=== PATIENT | male | born 1985 | race Two or more races ===

== ENCOUNTER 2023-03-31 03:26 | Observation (INO) | payer OTHER ==
[2023-03-31] MEDS ORDERED: SODIUM CHLORIDE 0.9% 500 ML INFUS.BAG IV ONE (03:49)
[2023-03-31] MEDS ORDERED: ONDANSETRON 4 MG/2 ML VIAL IVPUSH ONE ×2 (03:49→08:17)
[2023-03-31] MEDS ORDERED: ACETAMINOPHEN 1000 MG/100 ML BAG IVPB ONE (03:49)
[2023-03-31] MEDS ORDERED: ACETAMINOPHEN INJECTION 100 ML IVPB ONE (04:51)
[2023-03-31] MEDS ORDERED: ONDANSETRON 4 MG/2 ML VIAL ONE ×2 (04:51→08:19)
[2023-03-31 05:01] LABS: URINE APPEARANCE CLEAR; URINE BILIRUBIN NEGATIVE (NEGATIVE); URINE COLOR YELLOW; URINE GLUCOSE (UA) NEGATIVE (NEGATIVE); URINE KETONE NEGATIVE (NEGATIVE); URINE LEUK ESTERASE NEGATIVE (NEGATIVE); URINE NITRITE NEGATIVE (NEGATIVE); URINE PROTEIN NEGATIVE (NEGATIVE); URINE UROBILINOGEN 0.2 mg/dL (0.2-1.0)
[2023-03-31 05:02] LABS: BASO % 0.6 % (0-2.0); EOS % 1.4 % (0-4.5); HEMATOCRIT 46.1 % (35.4-49); HEMOGLOBIN 15.5 GM/dL (11.7-16.9); LYMPH % 37.9 % (8-40); MCHC 33.6 g/dl (32.0-35.9); MEAN CELL VOLUME 86.2 fl (80-96); MEAN PLT VOLUME 9.1 fl (7.5-11.1); MONO % 6.7 % (3.8-10.2); NEUT % 53.4 % (42.8-82.8); PLATELET COUNT 209 10^3/uL (134-434); RBC 5.35 M/mm3 (4.00-5.60); RDW 13.5 % (11.9-15.9); WHITE BLOOD COUNT 4.7 K/mm3 (4.0-10.0)
[2023-03-31 05:18] LABS: POTASSIUM 4.4 mmol/L (3.5-5.1)
[2023-03-31 05:21] LABS: ALBUMIN 3.9 g/dl (3.4-5.0); BLOOD UREA NITROGEN 8.5 mg/dL (7-18); CALCIUM 9.2 mg/dL (8.5-10.1)
[2023-03-31 05:24] LABS: CREATININE 0.8 mg/dL (0.55-1.3)
[2023-03-31 05:25] LABS: BILIRUBIN,TOTAL 0.6 mg/dL (0.2-1)
[2023-03-31 05:26] LABS: TOT PROT 7.6 g/dl (6.4-8.2)
[2023-03-31] MEDS ORDERED: LACTATED RINGERS SOLUTION 1000 ML INFUS.BAG IV ONE (08:02)
[2023-03-31] MEDS ORDERED: morphine CARPU-JECT 4 MG/1 ML DISP.SYRIN IVPUSH ONE (09:34)
[2023-03-31] MEDS ORDERED: morphine SULFATE 4 MG/ML VIAL ONE (09:43)
[2023-03-31 11:30] VITALS: BMI 28.9
[2023-03-31] MEDS ORDERED: ONDANSETRON 4 MG/2 ML VIAL IVPUSH PRN (12:02)
[2023-03-31] MEDS ORDERED: DEXTROSE 5%-0.45% SALINE 1,000 ML IV SCH (12:15)
[2023-03-31] MEDS: DEXTROSE 5%-LACTATED RINGERS 1,000 ML IV SCH (16:10)
[2023-03-31] MEDS: POLYETHYLENE GLYCOL (HEALTHYLAX) 3350 17 GM PACKET PO SCH (21:42)
[2023-04-01] MEDS: POLYETHYLENE GLYCOL (HEALTHYLAX) 3350 17 GM PACKET PO SCH ×3 (05:52→21:38)
[2023-04-01 09:22] LABS: BASO % 0.6 % (0-2.0); EOS % 0.9 % (0-4.5); HEMATOCRIT 45.6 % (35.4-49); HEMOGLOBIN 15.5 GM/dL (11.7-16.9); LYMPH % 41.1 % (8-40); MCH 29.3 pg (25.7-33.7); MEAN CELL VOLUME 86.3 fl (80-96); MEAN PLT VOLUME 8.6 fl (7.5-11.1); MONO % 7.1 % (3.8-10.2); NEUT % 50.3 % (42.8-82.8); PLATELET COUNT 217 10^3/uL (134-434); RBC 5.28 M/mm3 (4.00-5.60); WHITE BLOOD COUNT 4.2 K/mm3 (4.0-10.0)
[2023-04-01 09:49] LABS: CALCIUM 8.9 mg/dL (8.5-10.1)
[2023-04-01 09:50] LABS: ALBUMIN 3.8 g/dl (3.4-5.0); BLOOD UREA NITROGEN 10.3 mg/dL (7-18)
[2023-04-01 09:55] LABS: TOT PROT 7.1 g/dl (6.4-8.2)
[2023-04-01] MEDS: PANTOPRAZOLE 40 MG TABLET PO SCH (10:13)
[2023-04-01] MEDS: ENOXAPARIN NA (PORCINE) 40 MG/0.4 ML DISP.SYRIN SQ SCH (10:13)
[2023-04-01] MEDS: DEXTROSE 5%-LACTATED RINGERS 1,000 ML IV SCH ×2 (16:18→16:24)
[2023-04-02] MEDS: POLYETHYLENE GLYCOL (HEALTHYLAX) 3350 17 GM PACKET PO SCH ×2 (05:56→13:34)
[2023-04-02] MEDS: PANTOPRAZOLE 40 MG TABLET PO SCH (09:06)
[2023-04-02] MEDS: ENOXAPARIN NA (PORCINE) 40 MG/0.4 ML DISP.SYRIN SQ SCH (09:06)
[2023-04-02 10:00] LABS: HEMATOCRIT 44.3 % (35.4-49); HEMOGLOBIN 15.1 GM/dL (11.7-16.9); MCH 29.4 pg (25.7-33.7); MCHC 34.1 g/dl (32.0-35.9); MEAN CELL VOLUME 86.2 fl (80-96); MEAN PLT VOLUME 8.7 fl (7.5-11.1); PLATELET COUNT 213 10^3/uL (134-434); RBC 5.13 M/mm3 (4.00-5.60); RDW 13.3 % (11.9-15.9); WHITE BLOOD COUNT 4.1 K/mm3 (4.0-10.0)
[2023-04-02 10:16] LABS: POTASSIUM 3.8 mmol/L (3.5-5.1)
[2023-04-02 10:25] LABS: ALBUMIN 3.5 g/dl (3.4-5.0); CALCIUM 9.2 mg/dL (8.5-10.1)
[2023-04-02 10:28] LABS: CREATININE 0.9 mg/dL (0.55-1.3)
[2023-04-02 10:30] LABS: BILIRUBIN,TOTAL 1.2 mg/dL (0.2-1); TOT PROT 6.9 g/dl (6.4-8.2)
[2023-04-02 11:17] LABS: ANISOCYTOSIS 0; HELMET CELLS 0; HOWELL-JOLLY BODIES 0; MACROCYTOSIS 0; OVALOCYTE 0; ROULEAU 0; SICKELED CELLS 0; TARGET CELLS 0; TEAR DROP CELLS 0; TOXIC GRANULATION 0
[2023-04-02 13:43] VITALS: BP 166/96; PULSE 91; RESP 18; TEMP 98.4
[2023-04-03 00:06] LABS: PARATHYROID HORM INTACT 54 pg/mL (15-65)
== END 2023-04-02 16:45 | disposition home or self-care (01) ==
LOC: JER 03:26 → INTOOBSV 06:04 → JERBED 06:04 → J6S 11:20
PROVIDERS: ADMIT Internal Medicine; ATTEND Internal Medicine
PROC: 3E023GC Introduction of Other Therapeutic Substance into Muscle, Percutaneous Approach (ICD-10-PCS; principal; 2023-03-31)
PROC: 3E0337Z Introduction of Electrolytic and Water Balance Substance into Peripheral Vein, Percutaneous Approach (ICD-10-PCS; 2023-03-31)
PROC: 3E033NZ Introduction of Analgesics, Hypnotics, Sedatives into Peripheral Vein, Percutaneous Approach (ICD-10-PCS; 2023-03-31)
DX: K85.90 Acute pancreatitis without necrosis or infection, unspecified (principal); I10 Essential (primary) hypertension; K29.70 Gastritis, unspecified, without bleeding; F32.A Depression, unspecified
CPT/HCPCS: 0241U-QW; 36415; 74170-TC; 74182-TC; 76705-TC; 80053; 80061; 81003; 82150; 82787; 83690; 83735; 83970; 84443; 85025; 86140; 86301; 87086; 93005; 93010; 96365; 96372; 96375; 96376; 99285-25; G0378; Q9967